=== PATIENT | female | born 1940 | race Caucasian/White ===

== ENCOUNTER → 2017-10-08 | Outpatient (CLI) | payer MEDICARE, OTHER ==
[2014-10-15 15:01] VITALS: BMI 26.9
[~2017-10-08] MED LIST: ACE3 PO; ACET-1966 PO; ACID1TAB21 PO; ALLO-2 PO; ATOR10TA65 PO; Albuterol/Ipratropium NEB; CEFA1VIA IV; DIGO125T90 PO; FA/M1TAB27 PO; FERR27TA3 PO; FURO-47 PO; FURO40TA35 PO; HYDR25CA83 PO; LEVO25TA61 PO; LOPE2CAP88 PO; METO2.5T15 PO; METO25TA93 PO; MULT-885 PO; PAN40 PO; PANT40TA65 PO; PARO-244 PO; PARO-46 PO; POTA20TA10 PO; PRAV40TA77 PO; Pantoprazole Sod PO; SULF-198 PO; Triamcinolone Acet TP; VALS160T20 PO; VALS1TAB6 PO; WARF2.5T62 PO; WARF2TAB74 PO; WARF2TAB81 PO; WARF4TAB47 PO; [UNRECOGNIZED DRUG - CODE] PO
== END ==
LOC: LAB 11:09
PROVIDERS: ATTEND Internal Medicine
DX: M10.9 Gout, unspecified (principal); I10 Essential (primary) hypertension; E78.00 Pure hypercholesterolemia, unspecified; R73.01 Impaired fasting glucose
CPT/HCPCS: 36415; 82040; 82247; 82310; 82374; 82435; 82465; 82565; 82947; 83036; 83718; 84075; 84132; 84155; 84295; 84450; 84460; 84478; 84520; 84550

== ENCOUNTER → 2017-10-08 | Outpatient (CLI) | payer MEDICARE, OTHER ==
[2014-10-15 15:01] VITALS: BMI 26.9
--- NOTE | 2017-10-09 10:46 | RADIOLOGY IMAGING REPORT ---
FACILITY: [facility] PATIENT NAME: GIANFRANCO DENISE : [id number] MR: [id number] V: [id number] EXAM DATE: [id number] ORDERING PHYSICIAN: UMA NEGRETE TECHNOLOGIST: Noemi Webb EXAMINATION:TWO-DIMENSIONAL ECHOCARDIOGRAPH REASON:HX MITRAL REGURGITATION 2D Measurements (normal values in centimeters) LV endLV endRV endVent.LV PostAorticLeftPercent DiastolicSystolicDiastolicSeptumWallRootAtriumShortening (3.5-5.7)(0.9-2.6)(0.6-1.1)(0.6-1.1)(2.0-3.7)(1.9-4.0)(25-35%) [id number]% STROKE VOLUME: 44ml ESTIMATED EJECTION FRACTION:67% PARASTERNAL LONG AXIS: Left ventricular systolic function appears to be normal. Right ventricle appears to be enlarged as well as the left atrium. Mild aortic sclerosis is noted. The valve may be borderline stenotic. Right ventricle appears to contract normally & the TAPSE is measured at 2.0. PARASTERNAL SHORT AXIS: Overall left ventricular systolic function again appears to be normal. Right ventricle appears to be enlarged. Aortic valve is trileaflet in configuration. It is sclerotic. Color examination of the tricuspid valve reveals a moderate amount of tricuspid insufficiency. There is also a trace to mild amount of pulmonic insufficiency. Color examination of the aortic valve revealed a trace of aortic insufficiency present. APICAL FOUR AND TWO CHAMBER: Right ventricle is enlarged. Left atrium & right atrium are severely enlarged. The left ventricle is normal in size. Color examination of the tricuspid valve reveals a moderate amount of tricuspid insufficiency. The tricuspid regurgitation Vmax measured 3.3m/sec. Estimated right atrial pressure is approximately 3mm Hg. Left atrial & right atrial volumes are increased at 38 & 36ml/m2 indicating moderate enlargement of the atrium. Left ventricular systolic function appears to be normal. Aortic valve area was measured at 1.6cm2 with a mean pressure gradient across the valve of 7mm Hg. The mitral valve area was measured within normal ranges at 4.2cm2. Color examination of the mitral valve suggests moderate to borderline severe mitral insufficiency present. Patient may be in atrial fibrillation. SUBCOSTAL VIEW: No pericardial effusion was noted. No atrioseptal or ventriculoseptal defects were appreciated. Doppler examination of the mitral valve in diastole does reveal the E wave more than twice the velocity of the A wave suggesting significant decrease in diastolic function. OVERALL IMPRESSION: 1. Normal left ventricular ejection fraction of 67% with a severe decrease in diastolic function. 2. Mild right ventricular enlargement with moderate enlargement of the left atrium & moderate to severe enlargement of the right atrium. Left ventricle is normal in size. 3. A trileaflet aortic valve with borderline aortic stenosis with a valve area of 1.6cm2 with a mean pressure gradient across the valve of 7mm Hg & a dimensionless index of .6. Trace of aortic insufficiency is noted. 4. Moderate amount of tricuspid insufficiency with estimated right ventricular systolic pressures of 47mm Hg which does include an estimated right atrial pressure of 3mm Hg indicating increased right ventricular systolic pressures & moderate pulmonary hypertension. 5. A moderate to severe amount of mitral insufficiency. 6. In comparison to the examination done on 12/10/15, the only significant change is that the right ventricular systolic pressures have decreased from 96 to 47mm Hg. Chamber sizes are all approximately the same. The mitral insufficiency may be slightly less as well as the tricuspid insufficiency being slightly less. Dictated by: Celeste Oates M.D. on 10/08/2017 at 17:12 Transcribed by: FREDDY on 10/09/2017 at 9:43 Approved by: Celeste Oates M.D. on 10/09/2017 at 10:44 [facility]
== END ==
LOC: US 00:49
PROVIDERS: ATTEND Internal Medicine
DX: I10 Essential (primary) hypertension (principal); I50.30 Unspecified diastolic (congestive) heart failure; I51.7 Cardiomegaly; I35.2 Nonrheumatic aortic (valve) stenosis with insufficiency; I07.1 Rheumatic tricuspid insufficiency; I27.20 Pulmonary hypertension, unspecified; I34.0 Nonrheumatic mitral (valve) insufficiency
CPT/HCPCS: 93306

== ENCOUNTER → 2018-03-11 | Outpatient (CLI) | payer MEDICARE, OTHER ==
[2014-10-15 15:01] VITALS: BMI 26.9
[~2018-03-11] MED LIST changes: +ROS10 PO; +WARF2TAB13 PO; -WARF2TAB81 PO
[2018-03-11 10:16] LABS: LDL CHOLESTEROL 103 mg/dl
== END ==
LOC: LAB 09:13
PROVIDERS: ATTEND Internal Medicine
DX: E78.4 Other hyperlipidemia (principal)
CPT/HCPCS: 36415; 82040; 82247; 82310; 82374; 82435; 82465; 82565; 82947; 83718; 84075; 84132; 84155; 84295; 84450; 84460; 84478; 84520

== ENCOUNTER → 2018-09-24 | Outpatient (CLI) | payer MEDICARE, OTHER ==
[2014-10-15 15:01] VITALS: BMI 26.9
[~2018-09-24] MED LIST changes: +MAGN400C PO
[2018-09-24 12:00] LABS: LDL CHOLESTEROL 89 mg/dl
== END ==
LOC: LAB 10:53
PROVIDERS: ATTEND Internal Medicine
DX: E78.00 Pure hypercholesterolemia, unspecified (principal); I10 Essential (primary) hypertension; E03.9 Hypothyroidism, unspecified; E87.6 Hypokalemia
CPT/HCPCS: 36415; 82040; 82247; 82310; 82374; 82435; 82465; 82565; 82947; 83036; 83718; 83735; 84075; 84132; 84155; 84295; 84450; 84460; 84478; 84520

== ENCOUNTER → 2018-10-25 | Outpatient (CLI) | payer MEDICARE, OTHER ==
[2014-10-15 15:01] VITALS: BMI 26.9
[~2018-10-25] MED LIST changes: +METF-450 PO; +OXYGENHOME INH; -ROS10 PO; +ROSU10TA PO
== END ==
LOC: LAB 09:06
PROVIDERS: ATTEND Nurse Practitioner Family
DX: R79.89 Other specified abnormal findings of blood chemistry (principal); I10 Essential (primary) hypertension; R79.0 Abnormal level of blood mineral
CPT/HCPCS: 36415; 82306; 82310; 82330; 82374; 82435; 82565; 82947; 83735; 83970; 84100; 84132; 84295; 84443; 84520

== ENCOUNTER → 2018-10-28 | Outpatient (CLI) | payer MEDICARE, OTHER ==
[2014-10-15 15:01] VITALS: BMI 26.9
[~2018-10-28] MED LIST changes: +SPIR25TA80 PO
== END ==
LOC: LAB 12:07
PROVIDERS: ATTEND Nurse Practitioner Family
DX: R94.6 Abnormal results of thyroid function studies (principal)
CPT/HCPCS: 36415; 84439; 84481

== ENCOUNTER → 2018-11-25 | Outpatient (CLI) | payer MEDICARE, OTHER ==
[2014-10-15 15:01] VITALS: BMI 26.9
== END ==
LOC: LAB 16:12
PROVIDERS: ATTEND Nurse Practitioner Family
DX: E87.6 Hypokalemia (principal); I10 Essential (primary) hypertension
CPT/HCPCS: 36415; 82040; 82247; 82310; 82374; 82435; 82565; 82947; 84075; 84132; 84155; 84295; 84450; 84460; 84520

== ENCOUNTER → 2019-02-12 | Outpatient (CLI) | payer MEDICARE, OTHER ==
[2014-10-15 15:01] VITALS: BMI 26.9
== END ==
LOC: RAD 01:01
PROVIDERS: ATTEND Nurse Practitioner Family
DX: I51.7 Cardiomegaly (principal); I34.0 Nonrheumatic mitral (valve) insufficiency; I36.1 Nonrheumatic tricuspid (valve) insufficiency; I35.0 Nonrheumatic aortic (valve) stenosis
CPT/HCPCS: 93306